=== PATIENT | male | born 1975 | race Caucasian/White ===

== ENCOUNTER 2020-09-16 08:24 | Inpatient (IN) ==
[2020-09-16] MEDS ORDERED: ONDANSETRON 4 MG/2 ML VIAL IV STA ×2 (08:38→10:38)
[2020-09-16] MEDS ORDERED: SODIUM CHLORIDE 0.9% 2,000 ML IV STA (08:38)
[2020-09-16] MEDS ORDERED: ONDANSETRON 4 MG/2 ML VIAL ONE (08:39)
[2020-09-16 08:50] LABS: Basophils # 0.1 10*3/uL (0.0-0.2); Basophils % 0.3 % (0.0-0.8); Hematocrit 45.7 VOL% (42.0-52.0); Hemoglobin 15.8 GM/DL (14.0-18.0); Immature Granulocytes % 0.8 %; Immature Granulocytes Absolute 0.15 #; Lymphocytes # 0.5 10*3/uL (1.4-4.0); Lymphocytes % 2.6 % (21.2-54.2); Mean Corpuscular HGB Conc 34.6 GM/DL (32-36); Mean Corpuscular Volume 85.1 FL (87-102); Mean Platelet Volume 9.1 FL (9.6-12.0); Neutrophils % 90.3 % (38.7-73.9); Platelet Count 221 T/CUMM (130-400); Red Blood Count 5.37 MC/CUMM (3.8-5.5); Red Cell Distribution Width 13.1 % (9.3-17.3); White Blood Count 17.9 T/CUMM (4-12)
[2020-09-16 09:08] LABS: Albumin 3.9 G/DL (3.4-5.0); Calcium 8.6 MG/DL (8.5-10.1); Osmolality,Calculated 266.7 MOS/KG (273-304); Potassium 3.9 MMOL/L (3.5-5.1)
[2020-09-16 09:10] LABS: Anisocytosis 1+; Band Neutrophils 38 % (0-10); Metamyelocytes 1 %; Platelet Estimate Normal; Segmented Neutrophils 55 % (50-85); Total Cells Counted 100
[2020-09-16 10:25] LABS: Bacteria,Urine Occasional /HPF (Few); Bilirubin,Urine Negative (Negative); Blood, Urine Small mg/dL (Negative); Glucose,Urine (UA) 50 mg/dL (Negative); Ketones,Urine Negative (Negative); Nitrite,Urine Negative (Negative); Protein,Urine Negative; RBC,Urine 1 /HPF (0-4); Squamous Epithelial Cell,Urine Occasional /HPF (0-10); Urine Appearance CLEAR (Clear); Urine Color Yellow (Yellow); Urine Specific Gravity 1.004 (1.001-1.035); Urine Urobilinogen < 2.0 EU/DL (0.2-1.0); WBC,Urine 1 /HPF (0-6)
[2020-09-16] MEDS ORDERED: HYDROmorphone 2 MG/1 ML VIAL IV STA (10:38)
[2020-09-16] MEDS ORDERED: HYDROmorphone 2 MG/1 ML VIAL ONE (10:38)
[2020-09-16] MEDS ORDERED: PIPERACILLIN/TAZOBACTAM 3,375 MG in SODIUM CHLORIDE 0.9% 100 ML IV STA (12:01)
[2020-09-16] MEDS: HYDROmorphone 2 MG/1 ML VIAL IV PRN ×2 (13:56→22:30)
[2020-09-16] MEDS: SODIUM CHLORIDE 0.9% 1,000 ML IV SCH ×3 (14:38→22:30)
[2020-09-16] MEDS: ENOXAPARIN 40 MG/0.4 ML SYRINGE SUBCUT SCH (14:38)
[2020-09-16] MEDS: ACETAMINOPHEN 325 MG TABLET PO PRN ×2 (17:12→23:45)
[2020-09-17] MEDS: SODIUM CHLORIDE 0.9% 1,000 ML IV SCH ×3 (02:30→15:02)
[2020-09-17] MEDS: ONDANSETRON 4 MG/2 ML VIAL IV PRN ×2 (04:43→17:31)
[2020-09-17] MEDS: HYDROmorphone 2 MG/1 ML VIAL IV PRN ×3 (04:44→20:59)
[2020-09-17 05:27] LABS: Basophils % 0.3 % (0.0-0.8); Eosinophils # 0.1 10*3/uL (0.0-0.87); Eosinophils % 0.6 % (0.00-10.9); Hemoglobin 14.6 GM/DL (14.0-18.0); Immature Granulocytes % 1.8 %; Immature Granulocytes Absolute 0.22 #; Lymphocytes # 1.7 10*3/uL (1.4-4.0); Lymphocytes % 13.8 % (21.2-54.2); Mean Corpuscular HGB Conc 34.8 GM/DL (32-36); Mean Corpuscular Volume 87.3 FL (87-102); Mean Platelet Volume 9.9 FL (9.6-12.0); Monocytes % 9.1 % (1.7-12.7); Neutrophils % 74.4 % (38.7-73.9); Platelet Count 196 T/CUMM (130-400); Red Blood Count 4.81 MC/CUMM (3.8-5.5); Red Cell Distribution Width 13.5 % (9.3-17.3); White Blood Count 12.4 T/CUMM (4-12)
[2020-09-17 05:48] LABS: Band Neutrophils 1 % (0-10); Eosinophils 1 % (0-10); Lymphocytes 13 % (20-55); Platelet Estimate Adequate; Segmented Neutrophils 79 % (50-85); Total Cells Counted 100
[2020-09-17 06:08] LABS: Albumin 3.1 G/DL (3.4-5.0); Bilirubin,Total 1.9 MG/DL (0.2-1.0); Calcium 7.8 MG/DL (8.5-10.1); Osmolality,Calculated 278.3 MOS/KG (273-304); Total Protein 5.8 G/DL (6.4-8.2)
[2020-09-17] MEDS ORDERED: PROMETHAZINE 25 MG/1 ML VIAL ONE (08:05)
[2020-09-17] MEDS: ACETAMINOPHEN 325 MG TABLET PO PRN ×2 (08:09→13:23)
[2020-09-17] MEDS: PROMETHAZINE 25 MG/1 ML VIAL IM PRN ×2 (08:09→19:47)
[2020-09-17] MEDS: PIPERACILLIN/TAZOBACTAM 3,375 MG in SODIUM CHLORIDE 0.9% 100 ML IV SCH ×2 (08:09→17:28)
[2020-09-17] MEDS: PANTOPRAZOLE 40 MG TABLET PO SCH (10:23)
[2020-09-17 10:30] LABS: Hepatitis B Core IgM Quant 0.06 Index; Hepatitis B Surface Ag Quant < 0.10 Index; Hepatitis B Surface Ag Result Non-Reactive (NonReactive); Hepatitis C Virus Ab Quant 0.08 Index; Hepatitis C Virus Ab Result Non-Reactive (NonReactive)
[2020-09-17] MEDS: ENOXAPARIN 40 MG/0.4 ML SYRINGE SUBCUT SCH (12:11)
[2020-09-18] MEDS: PIPERACILLIN/TAZOBACTAM 3,375 MG in SODIUM CHLORIDE 0.9% 100 ML IV SCH ×4 (00:54→22:43)
[2020-09-18] MEDS: PANTOPRAZOLE 40 MG TABLET PO SCH (09:01)
[2020-09-18 09:14] LABS: Albumin 3.2 G/DL (3.4-5.0); Bilirubin,Direct 0.33 MG/DL (0.0-0.20); Bilirubin,Indirect 1.1 MG/DL (0.0-1.0); Bilirubin,Total 1.4 MG/DL (0.2-1.0); Total Protein 6.1 G/DL (6.4-8.2)
[2020-09-18] MEDS: SODIUM CHLORIDE 0.9% 1,000 ML IV SCH ×4 (09:21→22:43)
[2020-09-18] MEDS: ONDANSETRON 4 MG/2 ML VIAL IV PRN (10:19)
[2020-09-18] MEDS: ENOXAPARIN 40 MG/0.4 ML SYRINGE SUBCUT SCH (12:31)
[2020-09-18] MEDS: PROMETHAZINE 25 MG/1 ML VIAL IM PRN (12:49)
[2020-09-18] MEDS: HYDROmorphone 2 MG/1 ML VIAL IV PRN (22:42)
[2020-09-19] MEDS: SODIUM CHLORIDE 0.9% 1,000 ML IV SCH ×3 (00:59→10:22)
[2020-09-19 08:05] VITALS: BP 115/71
[2020-09-19] MEDS: PANTOPRAZOLE 40 MG TABLET PO SCH (09:58)
[2020-09-19] MEDS: PIPERACILLIN/TAZOBACTAM 3,375 MG in SODIUM CHLORIDE 0.9% 100 ML IV SCH (10:22)
== END 2020-09-19 10:25 | disposition home or self-care (01) | DRG 392 ==
LOC: EDBD → EDUNIT# → N.ED 08:24 → N.EDINP 12:34 → N.4E 14:10
PROVIDERS: ADMIT Family Medicine; ATTEND Family Medicine